=== PATIENT | male | born 1995 | race Caucasian/White ===

== ENCOUNTER 2018-02-08 09:47 | Emergency (ER) | payer OTHER ==
[2018-02-08 09:51] VITALS: BP 135/82; PULSE 85; RESP 20; TEMP 98.1
--- NOTE | 2018-02-08 10:08 | ED ---
General Adult HPI - General Chief complaint: Extremity Injury, Upper Stated complaint: Hand injury Time Seen by Provider: 02/08/18 10:03 Source: patient, RN notes reviewed Mode of arrival: ambulatory Limitations: no limitations - History of Present Illness Initial comments: Patient 22-year-old male presented to the emergency room today with a chief complaint of injury to the left hand that occurred 5 days ago. Patient does admit that he was working out when a friend excellently dropped a weight on his hand. Patient states he has had tenderness over the fifth metacarpal. Patient does admit to some tenderness with movements. He denies any other complaints or symptoms. Patient denies any recent fever, chills, shortness of breath, chest pain, back pain, abdominal pain, nausea or vomiting, numbness or tingling , headaches or visual changes, or any other complaints. - Related Data Home Medications Medication Instructions Recorded Confirmed Dextroamphetamine/Amphetamine 15 mg PO BID 04/24/16 04/24/16 [Adderall] [place]-3 Fatty Acids/Fish Oil [Fish 1 cap PO DAILY 04/24/16 04/24/16 Oil 1,000 mg Softgel] Previous Rx's Medication Instructions Recorded Cephalexin [Keflex] 500 mg PO Q12HR 7 Days cap 04/24/16 HYDROcodone/APAP 5-325MG [[place] 1 tab PO Q6HR #12 tab 04/24/16 5-325] Allergies Allergy/AdvReac Type Severity Reaction Status Date / Time No Known Allergies Allergy Verified 02/08/18 09:51 Review of Systems ROS Statement: Those systems with pertinent positive or pertinent negative responses have been documented in the HPI. ROS Other: All systems not noted in ROS Statement are negative. Past Medical History Past Medical History: No Reported History History of Any Multi-Drug Resistant Organisms: None Reported Past Surgical History: No Surgical Hx Reported Past Psychological History: ADD/ADHD Smoking Status: Current some day smoker Past Alcohol Use History: Occasional Past Drug Use History: None Reported General Exam - General Exam Comments Initial Comments: General: The patient is awake and alert, in no distress, and does not appear acutely ill. Neck: The neck is supple, there is no tenderness or JVD. Musculoskeletal: Patient does have moderate swelling to the left hand. Locally tender over the fifth metacarpal. Shows good range of motion. Patient does have abnormal range motion of the fourth digit after a tendon injury in the past. States this is normal range of motion for him. Sensations are intact. Cap refill less than 2 seconds. Radial pulses 2+. Neurological: A&O x 3. CN II-XII intact, There are no obvious motor or sensory deficits. Coordination appears grossly intact. Speech is normal. Skin: Skin is warm and dry and no rashes or lesions are noted. Psychiatric: Normal mood and affect. Limitations: no limitations Course Vital Signs 02/08/18 09:49 Temperature 98.1 F Pulse Rate 85 Respiratory 20 Rate Blood Pressure 135/82 O2 Sat by Pulse 100 Oximetry Medical Decision Making - Medical Decision Making Patient's x-ray reviewed does show a displaced fifth metacarpal fracture of the left hand. Patient's injury did occur 5 days ago. Patient has been splinted in a short arm ulnar gutter splint. Neurovascular rechecked and intact. Patient is advised follow-up with orthopedics over the next 2 days. Advised continued ice elevate the affected area at least place. Advised return for any other concerns. Disposition Clinical Impression: Boxers fracture Disposition: HOME SELF-CARE Condition: Good Instructions: Boxer Fracture (ED) Additional Instructions: Please leave splint in place until follow-up with orthopedics over the next 2 days. Please continue to ice elevate the affected area at least 4 times a day for 20 minutes at a time. Please return to emergency room for any other concerns. Is patient prescribed a controlled substance at d/c from ED?: No Referrals: Bennett Mayo MD [Primary Care Provider] - 1-2 days Joseph Fields MD [Medical Doctor] - 1-2 days Time of Disposition: 10:34
--- NOTE | 2018-02-08 10:26 | XR ---
EXAMINATION TYPE: XR hand complete LT , 3 VIEWS DATE OF EXAM ORDERED: 02/08/2018 HISTORY: Pain. COMPARISON: None. FINDINGS: There is a mildly displaced fracture of the mid diaphysis of the fifth metacarpal. This is displaced by the width of the metacarpal shaft. There is 35 degrees of angulation. IMPRESSION: MILDLY DISPLACED AND MODERATELY ANGULATED FRACTURE OF THE MIDSHAFT OF THE LEFT FIFTH METACARPAL. CODE A: INITIAL ENCOUNTER FOR CLOSED FRACTURE.
== END 2018-02-08 10:42 | disposition home or self-care (01) ==
LOC: EC 09:47
DX: S62.327A Displaced fracture of shaft of fifth metacarpal bone, left hand, initial encounter for closed fracture (principal); F90.9 Attention-deficit hyperactivity disorder, unspecified type; F17.200 Nicotine dependence, unspecified, uncomplicated; Z79.899 Other long term (current) drug therapy; W20.8XXA Other cause of strike by thrown, projected or falling object, initial encounter; Y93.B3 Activity, free weights
CPT/HCPCS: 29125; 99283

== ENCOUNTER 2018-02-17 08:18 | Day surgery (SDC) | payer OTHER ==
[~2018-02-17 08:18] MED LIST: ceFAZolin IN SWFI 2 GM/20 ML SYRINGE IVP ONE
[2018-02-17 08:57] VITALS: BMI 30.4
[2018-02-17] MEDS ORDERED: LACTATED RINGERS 1,000 ML IV ONE (09:03)
[2018-02-17] MEDS ORDERED: LIDOCAINE 1% 20 ML VIAL (10MG/ML) FOR IV START INTRADERMA ONE (09:03)
[2018-02-17] MEDS ORDERED: PROPOFOL 10 MG/ML 20 ML VIAL IV ONE (10:08)
[2018-02-17] MEDS ORDERED: fentaNYL (PF) 50 MCG/ML 2 ML AMP ONE (10:08)
[2018-02-17] MEDS ORDERED: HYDROmorphone (PF) 1 MG/ML ONE (10:08)
[2018-02-17] MEDS ORDERED: LIDOCAINE 1% INJ 10MG/ML (20 ML MDV) ONE (10:08)
[2018-02-17] MEDS ORDERED: MIDAZOLAM 2 MG/2 ML VIAL ONE (10:08)
[2018-02-17] MEDS ORDERED: SUCCINYLCHOLINE CHLORIDE 100 MG/5 ML SYR IV ONE (10:08)
[2018-02-17] MEDS ORDERED: ROPIVACAINE 5 MG/ML 30 ML VIAL MISCELLANE ONE ×2 (10:28)
[2018-02-17 11:18] VITALS: TEMP 97.8
[2018-02-17] MEDS ORDERED: HYDROmorphone 1 MG/ML 1 ML SYRINGE IVP ONE (11:28)
[2018-02-17 11:33] VITALS: PULSE 68
[2018-02-17 11:47] VITALS: RESP 18
[2018-02-17] MEDS ORDERED: SCOPOLAMINE 1.5MG/72HR PATCH TRANSDERM ONE (11:47)
[2018-02-17] MEDS ORDERED: ONDANSETRON 4 MG/2 ML VIAL IVP ONE (11:47)
[2018-02-17] MEDS ORDERED: HYDROmorphone 1 MG/ML 1 ML SYRINGE IVP PRN (11:47)
[2018-02-17] MEDS ORDERED: LIDOCAINE 1% 20 ML VIAL (10MG/ML) FOR IV START INTRADERMA PRN (11:47)
[2018-02-17] MEDS ORDERED: LACTATED RINGERS 1,000 ML IV SCH (11:47)
--- NOTE | 2018-02-17 11:48 | FL ---
Fluoroscopy HISTORY: fracture 2 minutes 2 seconds fluoroscopy time supplied to the referring clinician. 2 intraoperative C-arm marcela ges document the procedure. See dictated report from orthopedic surgery.
--- NOTE | 2018-02-17 11:53 | XR ---
Limited left wrist history: fracture 2 views of the left wrist document the procedure
[2018-02-17 12:03] VITALS: BP 146/878
--- NOTE | 2018-02-17 17:13 | P.OP ---
Date of Procedure: 02/17/18 Procedure(s) Performed: PREOPERATIVE DIAGNOSES: 1. Right hand fifth metacarpal shaft fracture, displaced POSTOPERATIVE DIAGNOSES: 1. Right hand fifth metacarpal shaft fracture, displaced PROCEDURES PERFORMED: 1. Right hand fifth metacarpal shaft fracture closed reduction and percutaneous pinning ANESTHESIA: Gen. BINDING CUTTER SYNTHETIC CLOTH: Melony Martinez PA-C (assistance with: Patient positioning, reduction, fixation, dressing, splinting) COMPLICATIONS: None ESTIMATED BLOOD LOSS: Less than 1 mL. DISPOSITION: To post-anesthesia care unit INDICATIONS: Shahzad is a 22-year-old male with a history of sustaining a fracture to the right hand fifth finger metacarpal shaft. The fracture is midshaft, transverse and completely displaced. I have advised closed reduction (possible open reduction) and percutaneous pinning. I have explained the risks and potential complications of this surgery as being inclusive of but not limited to bleeding, infection, scarring, discomfort, blood vessel and/or nerve damage, stiffness, deformity, rotational abnormality, need for further surgery, and other risks. We have extensively discussed the risk of stiffness, which is something that can occur with these kinds of injuries. We have discussed the need for extended rehabilitation and occupational therapy to regain what motion possible. The consent form has been signed. PROCEDURE: After appropriate consent was obtained, the patient was taken to the operating room placed in the supine position. Anesthesia was initiated, and after confirmation of adequate anesthesia, the patient was carefully positioned. Care was taken to make sure that all pressure points were adequately padded. Prepping and draping were completed in the usual aseptic fashion using ChloraPrep. Timeout was called, confirming patient identity, side , procedure, and administration of antibiotics. The right fifth metacarpal shaft was carefully manipulated under C-arm imaging and the fracture was reduced with the assistance of a bone holding clamp. This was applied percutaneously and adjusted until an acceptable reduction had been obtained. A 0.062 inch K wire was then inserted using oscillation setting under power from the distal aspect of the distal fragment across the fracture site and into the shaft of the proximal fragment. The reduction was stable to gentle flexion and extension under C-arm imaging and varus valgus alignment was satisfactory. The pin was trimmed and protected with a pin protector. A well-padded well molded ulnar gutter splint was placed. Neurovascular status was satisfactory. Patient tolerated the procedure well and taken to recovery room in stable condition.
== END 2018-02-17 12:22 | disposition home or self-care (01) ==
LOC: OR 08:18
PROVIDERS: ATTEND Orthopaedic Surgery
DX: S62.327A Displaced fracture of shaft of fifth metacarpal bone, left hand, initial encounter for closed fracture (principal); F98.8 Other specified behavioral and emotional disorders with onset usually occurring in childhood and adolescence; Z79.2 Long term (current) use of antibiotics; Z79.891 Long term (current) use of opiate analgesic; Z79.899 Other long term (current) drug therapy; Z72.0 Tobacco use
CPT/HCPCS: 73100; 26608; C1713; J2250; J2001; J3010; J1170; J2795; J0330; J2704; J0690